=== PATIENT | male | born 1990 | race Caucasian/White ===

== ENCOUNTER 2016-05-01 20:57 | Emergency (ER) | payer OTHER ==
[~2016-05-01 20:57] MED LIST: AMOX400S2 PO; CHLO0.129 SSP; COLA100C PO; DOCU10ELUD PO; HYDR1SOL PO; IBUP100SUS PO; PERI0.126 MT; ZOFR4SOL PO
[2016-05-01] MEDS ORDERED: IBUPROFEN 600 MG TAB As Ordered ONE (22:13)
--- NOTE | 2016-05-01 22:44 | EDDOCDS ---
Physician Documentation [facility] Name: Rip Lim Age: 25 yrs Sex: Male : 1990 Arrival Date: 05/01/2016 Time: 20:57 Bed PR / [facility] Disposition: 05/01/16 22:32 Discharged to Home/Self Care. Impression: Contusion of left great toe without damage to nail. - Condition is Stable. - Discharge Instructions: Crush Injury, Fingers or Toes. - Prescriptions for Ibuprofen 600 mg Oral Tablet - take 1 tablet by ORAL route every 6 hours As needed take with food; 30 tablet. - Medication Reconciliation, Local Pharmacy Hours form. - Follow up: [facility] [place]; When: As needed; Reason: Continuance of care. - Problem is new. - Symptoms are unchanged. - Notes: elevate foot ice 20min an hour Historical: - Allergies: no known allergies; - Home Meds: 1. none - PMHx: none; - PSHx: Appendectomy; jaw repair; - Social history: Smoking status: Patient states was never smoker of tobacco. No barriers to communication noted, The patient speaks fluent Setswana. - Family history: Not pertinent. - : The pt / caregiver states he / she is not on anticoagulants. Home medication list is obtained from the patient. - Exposure Risk Screening:: None identified. Vital Signs: 05/01 20:59 BP 147 / 74; Pulse 80; Resp 18; Temp 97.3; Pulse Ox 98% on R/A; Weight 104.33 kg / ct3 230.01 lbs (R); Height 5 ft. 11 in. (180.34 cm) (R); Pain 7/10; 22:40 BP 143 / 71; Pulse 68; Resp 18; Temp 99.3(TE); Pulse Ox 97% on R/A; Pain 5/10; mdr 20:59 Body Mass Index 32.08 (104.33 kg, 180.34 cm) ct3 MDM: 22:12 Ibuprofen 600 mg PO once ordered. ke 22:13 Toes Ordered. EDMS Administered Medications: 22:14 Drug: Ibuprofen 600 mg [ibuprofen 600 mg tablet (1 tabs)] Route: PO; ck1 Signatures: Dispatcher Med[employer] EDMS Ameya Donovan FNP FNP ke Kim-Diana,Nell,RN RN ck1 Magnolia Love,RN RN rs3 MTDD
--- NOTE | 2016-05-01 22:45 | EDDOCDS ---
Nurse's Notes [facility] Name: Rip Lim Age: 25 yrs Sex: Male : 1990 Arrival Date: 05/01/2016 Time: 20:57 Bed PR Private MD: [place]Chris DORAD[place] Diagnosis: Contusion of left great toe without damage to nail Presentation: 05/01 21:02 Presenting complaint: Patient states: dropped a couch on L [address] toe. swelling and rs3 tenderness present. Adult Sepsis Screening: The patient does not have new or worsening altered mentation. Patient's respiratory rate is less than 22. Systolic blood pressure is greater than 100. Patient has a qSOFA score of 0- Negative Sepsis Screen. Suicide/Homicide risk assessment- the patient denies having any suicidal and/or homicidal ideations and does not present with any other emotional, behavioral or mental health complaints. Status: The patient is an active duty client services director. Transition of care: patient was not received from another setting of care. 21:02 Acuity: PRECIOUS Level 4 rs3 21:02 Method Of Arrival: Walkin/Carried/Asstd rs3 Triage Assessment: 21:05 General: Appears in no apparent distress. Pain: Location: left first toe. Pt Declines rs3 HIV testing. Historical: - Allergies: no known allergies; - Home Meds: 1. none - PMHx: none; - PSHx: Appendectomy; jaw repair; - Social history: Smoking status: Patient states was never smoker of tobacco. No barriers to communication noted, The patient speaks fluent Burundian. - Family history: Not pertinent. - : The pt / caregiver states he / she is not on anticoagulants. Home medication list is obtained from the patient. - Exposure Risk Screening:: None identified. Screenin:15 Screening information is obtained from the patient. Fall risk: No risks identified. ck1 Assistance ADL's: requires no assistance with activities of daily living. Abuse/DV Screen: The patient / caregiver reports he/she is: not in a situation that causes fear, pain or injury. Nutritional screening: No deficits noted. Advance Directives: Currently, there is no health care proxy. home support is adequate. Assessment: 22:15 General: Appears in no apparent distress, comfortable, Behavior is appropriate for age, ck1 cooperative. Pain: Location: left first toe Pain currently is 6 out of 10 on a pain scale. Derm: Skin is intact, is healthy with good turgor, Skin is pink, warm & dry. Musculoskeletal: Circulation, motion, and sensation intact Range of motion intact in all extremities. 22:42 General: Appears in no apparent distress, comfortable, Behavior is appropriate for age, ck1 cooperative. Pain: Location: left first toe Pain currently is 5 out of 10 on a pain scale. Neurological: Level of Consciousness is awake, alert, obeys commands. Respiratory: Respiratory effort is unlabored, Respiratory pattern is regular, symmetrical. Derm: Skin is intact, is healthy with good turgor, Skin is pink, warm & dry. Vital Signs: 20:59 BP 147 / 74; Pulse 80; Resp 18; Temp 97.3; Pulse Ox 98% on R/A; Weight 104.33 kg (R); ct3 Height 5 ft. 11 in. (180.34 cm) (R); Pain 7/10; 22:40 BP 143 / 71; Pulse 68; Resp 18; Temp 99.3(TE); Pulse Ox 97% on R/A; Pain 5/10; mdr 20:59 Body Mass Index 32.08 (104.33 kg, 180.34 cm) ct3 Vitals: 20:59 Log In Time: May 01, 2016 at 20:57. ct3 ED Course: 20:58 Patient visited by Jessa Watson PCA. ct3 20:58 Patient moved to Waiting ct3 20:59 [facility] is Private Physician. ct3 21:00 Patient moved to Pre RCE ct3 21:04 Triage Initiated rs3 21:31 Patient moved to Triage 2 mdr 21:59 Patient visited by Nell Crook,ELA. ck1 22:05 Ameya Donovan FNP is PHCP. ke 22:05 Patient visited by Ameya Donovan FNP. ke 22:05 Patient visited by Ameya Donovan FNP. ke 22:14 Patient moved to TR1 ck1 22:15 The patient / caregiver is instructed regarding the plan of care and ED course. ck1 22:16 No IV's were initiated during this patient's visit. ck1 22:32 [facility] is Referral Physician. ke 22:34 Patient moved to PR1 / 25 ck1 22:41 Patient visited by Blane Velazquez, XIOMARA. mdr 22:42 No procedures done that require assistance. ck1 Administered Medications: 22:14 Drug: Ibuprofen 600 mg [ibuprofen 600 mg tablet (1 tabs)] Route: PO; ck1 Order Results: There are currently no results for this order. Outcome: 22:32 Discharge ordered by Provider. ke 22:42 Discharge Assessment: Patient awake, alert and oriented x 3. No cognitive and/or ck1 functional deficits noted. Patient verbalized understanding of disposition instructions. patient administered narcotics - no. The following High Risk Discharge criteria are identified: None. Discharged to home ambulatory. Condition: stable. Discharge instructions given to patient, Instructed on discharge instructions, follow up and referral plans. medication usage, Demonstrated understanding of instructions, medications, Pt was receptive of discharge instructions/ teaching. Prescriptions given X 1. No special radiology studies were completed. Property :Personal belongings accompany Pt. 22:43 Patient left the ED. ck1 Signatures: Ameya Donovan, CAREERS COUNSELLOR CAREERS COUNSELLOR Nell McRN RN ck1 Magnolia Love RN RN rs3 Jessa Watson, DIGITAL MEDIA SALES CONSULTANT DIGITAL MEDIA SALES CONSULTANT ct3 Blane Velazquez, DIGITAL MEDIA SALES CONSULTANT DIGITAL MEDIA SALES CONSULTANT mdr MTDD
--- NOTE | 2016-05-02 07:54 | REP ---
Clinical: Trauma. Technique: AP, lateral, bilateral oblique views left first toe . Findings: The osseous structures and joint spaces are intact and normal. There is no evidence for acute fracture or dislocation. Surrounding soft tissues are unremarkable. No subcutaneous emphysema or radiodense foreign body. Impression: Normal examination. No acute fracture or dislocation. Signed by Saman Ambriz MD 05/02/2016 07:45 A
--- NOTE | 2016-05-03 23:44 | EDDOCDS ---
Physician Documentation [facility] Name: Rip Lim Age: 25 yrs Sex: Male : 1990 Arrival Date: 05/01/2016 Time: 20:57 Bed PR [facility] Disposition: 05/01/16 22:32 Discharged to Home/Self Care. Impression: Contusion of left great toe without damage to nail. - Condition is Stable. - Discharge Instructions: Crush Injury, Fingers or Toes. - Prescriptions for Ibuprofen 600 mg Oral Tablet - take 1 tablet by ORAL route every 6 hours As needed take with food; 30 tablet. - Medication Reconciliation, Local Pharmacy Hours form. - Follow up: [facility] [place]; When: As needed; Reason: Continuance of care. - Problem is new. - Symptoms are unchanged. - Notes: elevate foot ice 20min an hour Historical: - Allergies: no known allergies; - Home Meds: 1. none - PMHx: none; - PSHx: Appendectomy; jaw repair; - Social history: Smoking status: Patient states was never smoker of tobacco. No barriers to communication noted, The patient speaks fluent Danish. - Family history: Not pertinent. - : The pt / caregiver states he / she is not on anticoagulants. Home medication list is obtained from the patient. - Exposure Risk Screening:: None identified. Vital Signs: 05/01 20:59 BP 147 / 74; Pulse 80; Resp 18; Temp 97.3; Pulse Ox 98% on R/A; Weight 104.33 kg / ct3 230.01 lbs (R); Height 5 ft. 11 in. (180.34 cm) (R); Pain 7/10; 22:40 BP 143 / 71; Pulse 68; Resp 18; Temp 99.3(TE); Pulse Ox 97% on R/A; Pain 5/10; mdr 20:59 Body Mass Index 32.08 (104.33 kg, 180.34 cm) ct3 MDM: 22:12 Ibuprofen 600 mg PO once ordered. ke 22:13 Toes Ordered. EDMS 05/02 12:28 T-Sheet-- Draft Copy was scanned into [employer] and attached to record. gb Administered Medications: 05/01 22:14 Drug: Ibuprofen 600 mg [ibuprofen 600 mg tablet (1 tabs)] Route: PO; ck1 Signatures: Dispatcher MedHost EDSahara Khanna, Reg Reg gb Ameya Donovan, VICE PRESIDENT NETWORK VICE PRESIDENT NETWORK Nell McRN RN ck1 Magnolia Love RN RN rs3 The chart was reviewed and I authenticate all verbal orders and agree with the evaluation and treatment provided.Attachments: 05/02 12:28 T-Sheet-- Draft Copy gb Chart Complete MTDD
--- NOTE | 2016-05-03 23:44 | EDDOCDS ---
Nurse's Notes [facility] Name: Rip Lim Age: 25 yrs Sex: Male : 1990 Arrival Date: 05/01/2016 Time: 20:57 Bed PR Private MD: [place]Chris DORAD[place] Diagnosis: Contusion of left great toe without damage to nail Presentation: 05/01 21:02 Presenting complaint: Patient states: dropped a couch on L [address] st toe. swelling and rs3 tenderness present. Adult Sepsis Screening: The patient does not have new or worsening altered mentation. Patient's respiratory rate is less than 22. Systolic blood pressure is greater than 100. Patient has a qSOFA score of 0- Negative Sepsis Screen. Suicide/Homicide risk assessment- the patient denies having any suicidal and/or homicidal ideations and does not present with any other emotional, behavioral or mental health complaints. Status: The patient is an active duty special service representative. Transition of care: patient was not received from another setting of care. 21:02 Acuity: PRECIOUS Level 4 rs3 21:02 Method Of Arrival: Walkin/Carried/Asstd rs3 Triage Assessment: 21:05 General: Appears in no apparent distress. Pain: Location: left first toe. Pt Declines rs3 HIV testing. Historical: - Allergies: no known allergies; - Home Meds: 1. none - PMHx: none; - PSHx: Appendectomy; jaw repair; - Social history: Smoking status: Patient states was never smoker of tobacco. No barriers to communication noted, The patient speaks fluent Turkmen. - Family history: Not pertinent. - : The pt / caregiver states he / she is not on anticoagulants. Home medication list is obtained from the patient. - Exposure Risk Screening:: None identified. Screenin:15 Screening information is obtained from the patient. Fall risk: No risks identified. ck1 Assistance ADL's: requires no assistance with activities of daily living. Abuse/DV Screen: The patient / caregiver reports he/she is: not in a situation that causes fear, pain or injury. Nutritional screening: No deficits noted. Advance Directives: Currently, there is no health care proxy. home support is adequate. Assessment: 22:15 General: Appears in no apparent distress, comfortable, Behavior is appropriate for age, ck1 cooperative. Pain: Location: left first toe Pain currently is 6 out of 10 on a pain scale. Derm: Skin is intact, is healthy with good turgor, Skin is pink, warm & dry. Musculoskeletal: Circulation, motion, and sensation intact Range of motion intact in all extremities. 22:42 General: Appears in no apparent distress, comfortable, Behavior is appropriate for age, ck1 cooperative. Pain: Location: left first toe Pain currently is 5 out of 10 on a pain scale. Neurological: Level of Consciousness is awake, alert, obeys commands. Respiratory: Respiratory effort is unlabored, Respiratory pattern is regular, symmetrical. Derm: Skin is intact, is healthy with good turgor, Skin is pink, warm & dry. Vital Signs: 20:59 BP 147 / 74; Pulse 80; Resp 18; Temp 97.3; Pulse Ox 98% on R/A; Weight 104.33 kg (R); ct3 Height 5 ft. 11 in. (180.34 cm) (R); Pain 7/10; 22:40 BP 143 / 71; Pulse 68; Resp 18; Temp 99.3(TE); Pulse Ox 97% on R/A; Pain 5/10; mdr 20:59 Body Mass Index 32.08 (104.33 kg, 180.34 cm) ct3 Vitals: 20:59 Log In Time: May 01, 2016 at 20:57. ct3 ED Course: 20:58 Patient visited by Jessa Watson PCA. ct3 20:58 Patient moved to Waiting ct3 20:59 [facility] is Private Physician. ct3 21:00 Patient moved to Pre RCE ct3 21:04 Triage Initiated rs3 21:31 Patient moved to Triage 2 mdr 21:59 Patient visited by Nell Crook,ELA. ck1 22:05 Ameya Donovan FNP is PHCP. ke 22:05 Patient visited by Ameya Donovan FNP. ke 22:05 Patient visited by Ameya Donovan FNP. ke 22:14 Patient moved to TR1 ck1 22:15 The patient / caregiver is instructed regarding the plan of care and ED course. ck1 22:16 No IV's were initiated during this patient's visit. ck1 22:32 [facility] is Referral Physician. ke 22:34 Patient moved to PR1 / 25 ck1 22:41 Patient visited by Blane Velazquez PCA. mdr 22:42 No procedures done that require assistance. ck1 05/02 08:16 Toes Returned. EDMS 12:28 T-Sheet-- Draft Copy was scanned into [employer] and attached to record. gb Administered Medications: 05/01 22:14 Drug: Ibuprofen 600 mg [ibuprofen 600 mg tablet (1 tabs)] Route: PO; ck1 Order Results: Radiology Order: Toes Test: Toes REASON FOR EXAMINATION: Trauma; Clinical: Trauma.; ; Technique: AP, lateral, bilateral oblique views left first toe .; ; Findings: The osseous structures and joint spaces are intact and normal. There; is no evidence for acute fracture or dislocation. Surrounding soft tissues are; unremarkable. No subcutaneous emphysema or radiodense foreign body.; ; Impression:; Normal examination. No acute fracture or dislocation.; ; ; Signed by; Saman Ambriz MD 05/02/2016 07:45 A; Outcome: 22:32 Discharge ordered by Provider. 22:42 Discharge Assessment: Patient awake, alert and oriented x 3. No cognitive and/or ck1 functional deficits noted. Patient verbalized understanding of disposition instructions. patient administered narcotics - no. The following High Risk Discharge criteria are identified: None. Discharged to home ambulatory. Condition: stable. Discharge instructions given to patient, Instructed on discharge instructions, follow up and referral plans. medication usage, Demonstrated understanding of instructions, medications, Pt was receptive of discharge instructions/ teaching. Prescriptions given X 1. No special radiology studies were completed. Property :Personal belongings accompany Pt. 22:43 Patient left the ED. ck1 Signatures: Dispatcher [employer]Ho EDTX Sahara Guzman, Reg Reg Ameya Donovan, GLOBAL SAFETY OFFICER GLOBAL SAFETY OFFICER Nell McRN RN ck1 Magnolia Love RN RN rs3 Jessa Watson, XIOMARA COLLAR FUSER ct3 Blane Velazquez, XIOMARA COLLAR FUSER mdr Chart Complete MTDD
--- NOTE | 2016-05-03 23:44 | EDDOCDS ---
Physician Documentation [facility] Name: Rip Lim Age: 25 yrs Sex: Male : 1990 Arrival Date: 05/01/2016 Time: 20:57 Bed PR [facility]: 05/01/16 22:32 Discharged to Home/Self Care. Impression: Contusion of left great toe without damage to nail. - Condition is Stable. - Discharge Instructions: Crush Injury, Fingers or Toes. - Prescriptions for Ibuprofen 600 mg Oral Tablet - take 1 tablet by ORAL route every 6 hours As needed take with food; 30 tablet. - Medication Reconciliation, Local Pharmacy Hours form. - Follow up: [facility] [place]; When: As needed; Reason: Continuance of care. - Problem is new. - Symptoms are unchanged. - Notes: elevate foot ice 20min an hour Historical: - Allergies: no known allergies; - Home Meds: 1. none - PMHx: none; - PSHx: Appendectomy; jaw repair; - Social history: Smoking status: Patient states was never smoker of tobacco. No barriers to communication noted, The patient speaks fluent Kiswahili. - Family history: Not pertinent. - : The pt / caregiver states he / she is not on anticoagulants. Home medication list is obtained from the patient. - Exposure Risk Screening:: None identified. Vital Signs: 05/01 20:59 BP 147 / 74; Pulse 80; Resp 18; Temp 97.3; Pulse Ox 98% on R/A; Weight 104.33 kg / ct3 230.01 lbs (R); Height 5 ft. 11 in. (180.34 cm) (R); Pain 7/10; 22:40 BP 143 / 71; Pulse 68; Resp 18; Temp 99.3(TE); Pulse Ox 97% on R/A; Pain 5/10; mdr 20:59 Body Mass Index 32.08 (104.33 kg, 180.34 cm) ct3 MDM: 22:12 Ibuprofen 600 mg PO once ordered. ke 22:13 Toes Ordered. EDMS 05/02 12:28 T-Sheet-- Draft Copy was scanned into [employer] and attached to record. gb Administered Medications: 05/01 22:14 Drug: Ibuprofen 600 mg [ibuprofen 600 mg tablet (1 tabs)] Route: PO; ck1 Signatures: Dispatcher MedHost EDSahara Khanna, Reg Reg gb Ameya Donovan, CATALOG LIBRARY ASSISTANT CATALOG LIBRARY ASSISTANT Nell McRN RN ck1 Magnolia Love RN RN rs3 The chart was reviewed and I authenticate all verbal orders and agree with the evaluation and treatment provided.Attachments: 05/02 12:28 T-Sheet-- Draft Copy gb Chart Complete MTDD
== END 2016-05-01 22:43 | disposition home or self-care (01) ==
LOC: M ED 20:57
DX: S90.112A Contusion of left great toe without damage to nail, initial encounter (principal); W22.8XXA Striking against or struck by other objects, initial encounter; Y92.019 Unspecified place in single-family (private) house as the place of occurrence of the external cause; Y93.89 Activity, other specified; Y99.8 Other external cause status

== ENCOUNTER 2016-07-27 11:11 | Emergency (ER) | payer OTHER ==
[~2016-07-27] VITALS: Ht 180.3 cm; Wt 113.4 kg
[~2016-07-27 11:11] MED LIST changes: -COLA100C PO; +COLA100C3 PO
[2016-07-27 12:32] VITALS: BP 146/71
--- NOTE | 2016-07-27 12:37 | REP ---
CT MAXILLOFACIAL BONES: CT maxillofacial bones performed in the axial plane with sagittal and coronal reconstruction images. I see no evidence of acute fracture of the maxillofacial bones. There is evidence of an old fracture of the right side of the mandible with metallic plate and screws in this region. There is mild to moderate mucosal thickening in both maxillary sinuses. There is moderate mucosal thickening in the left sphenoid sinus. Globes are intact. No other abnormalities are seen. IMPRESSION: No evidence of acute fracture of the maxillofacial bones. Old mandible fracture. Mucosal thickening in the maxillary sinuses bilaterally as well as the left sphenoid sinus. Signed by Bertrand Bailey MD 07/27/2016 07:56 P
== END 2016-07-27 12:34 | disposition home or self-care (01) ==
LOC: M ED 11:30
DX: S01.91XA Laceration without foreign body of unspecified part of head, initial encounter (principal); X58.XXXA Exposure to other specified factors, initial encounter; Y92.099 Unspecified place in other non-institutional residence as the place of occurrence of the external cause; Y93.9 Activity, unspecified; Y99.9 Unspecified external cause status

== ENCOUNTER 2017-02-14 19:33 | Emergency (ER) | payer OTHER ==
[~2017-02-14] VITALS: Ht 180.3 cm; Wt 109.1 kg
[~2017-02-14 19:33] MED LIST changes: -COLA100C3 PO; +COLA100C5 PO; +IBUP100S37 PO; -IBUP100SUS PO
[2017-02-14] MEDS ORDERED: ZOMI5TAB2 (19:55)
[2017-02-14] MEDS ORDERED: VITA100T98 (19:55)
[2017-02-14] MEDS ORDERED: D3-5CAP (19:55)
[2017-02-14] MEDS ORDERED: FISH1000 (19:55)
[2017-02-14] MEDS ORDERED: TOPI25TA10 (19:55)
[2017-02-14] MEDS ORDERED: GABA-282 (19:55)
[2017-02-14] MEDS ORDERED: IBUPROFEN 800 MG TAB PO ONE (21:15)
[2017-02-14 21:53] VITALS: BP 122/58
--- NOTE | 2017-02-15 08:57 | REP ---
LEFT FINGERS, FOUR VIEWS: HISTORY: Injury. There is no acute fracture or dislocation. The joint spaces are normal in appearance. IMPRESSION: There is no acute fracture or dislocation. Signed by Kaushik Morocho MD 02/15/2017 09:29 A
== END 2017-02-14 21:55 | disposition home or self-care (01) ==
LOC: M ED 19:33
DX: S60.012A Contusion of left thumb without damage to nail, initial encounter (principal); W01.0XXA Fall on same level from slipping, tripping and stumbling without subsequent striking against object, initial encounter; Y92.099 Unspecified place in other non-institutional residence as the place of occurrence of the external cause; Y93.01 Activity, walking, marching and hiking; Y99.9 Unspecified external cause status; Z79.899 Other long term (current) drug therapy